=== PATIENT | female | born 1950 | race Caucasian/White ===

== ENCOUNTER 2024-02-28 23:15 | Inpatient (IN) | payer MEDICARE, OTHER, SELFPAY ==
[2024-02-28 20:22] VITALS: BP 107/61
--- NOTE | 2024-02-28 20:29 | ED.GENMED ---
History of Present Illness
General
Chief Complaint: Abnormal Lab Value
Time Seen by Provider: 02/28/24 20:25
History of Present Illness
History of Present Illness:
HPI: The patient presents from [facility] with an abnormal lab test of a sodium of 156. She has baseline dementia and we are told that there has been no change in her mental status. Details are currently limited.
EXAM:
GENERAL: Appears in some distress during IV insertion placement of the right upper extremity
HEENT: Very dry oral mucosa
CARDIOVASCULAR: Regular rate and rhythm
PULMONARY: No respiratory distress, breathing is nonlabored, equal and clear breath sounds
ABDOMEN: Soft and nontender with no peritoneal signs
NEUROLOGIC: The patient has evidence of dementia, not oriented to month or place, strength is equal in all extremities, yells out at times
EXTREMITIES: Moves all extremities equally, no tenderness, no edema
PYSCHIATRIC: Very limited historian, poor insight and judgment
TIME OF INITIAL ENCOUNTER: 8:30 PM
NUMBER AND COMPLEXITY OF PROBLEMS ADDRESSED AT THE ENCOUNTER
� Chronic conditions affecting care: Dementia
� Acute Exacerbation and/or Progression of Chronic Illness: This is an acute problem
� Differential Diagnosis includes: Dehydration, EMA, hypernatremia
AMOUNT AND/OR COMPLEXITY OF DATA TO BE REVIEWED AND ANALYZED
� I performed an independent evaluation of and my interpretation is:
EKG:
CT:
X-rays:
Laboratory Studies: Sodium is 154, creatinine is 1.0
Other:
� Review of other/old records: I reviewed the notes and records coming in from [facility] which indicates a sodium of 156
� Clinical information was obtained by an independent historian: EMS/halfway notes
� Prescriptions/Medications Considered but not given:
� Further testing considered but not performed:
RISK OF COMPLICATIONS AND/OR MORBIDITY OR MORTALITY OF PATIENT MANAGEMENT
� Social determinants of health affecting care: Lives at [facility]
� Discussion with other providers: Dr. Hutchins for admission at 9:50 PM
� Escalation of care including admission/observation vs risk of discharge considered: The patient appears very dehydrated in the setting of a sodium of 156. I gave her 500 mL normal saline bolus then will switch to half-normal
at 100 mL/h. Sodium remains high here. Will plan admission to the hospital for IV fluids and further management of the hyponatremia.
Phy Exam
Physical Exam
Physical Exam:
See HPI
Course
Orders/Labs/Results
Orders:
Orders
02/28/24 20:28
0.9% Sodium Chloride 500 ml [Nss] 500 ml IV BOLUS
02/28/24 20:40
Basic Metabolic Panel Urgent
Complete Blood Count/With Diff Urgent
02/28/24 21:00
0.45% Sodium Chloride 1000 ml [0.45%NaCl] 1,000 ml IV 100 mls/hr
Abnormal Lab Results
02/28/24
20:40
WBC 15.6 H 10^3/uL
(4.8-10.8)
Hgb 11.7 L g/dL
(12.0-16.0)
Hct 36.8 L %
(37.0-47.0)
MCV 79.8 L fL
(81.0-99.0)
MCH 25.4 L pg
(27.0-31.0)
MCHC 31.8 L g/dL
(33.0-37.0)
RDW 22.1 H %
(11.5-14.5)
Abs Immat Gran (auto) 0.2 H 10^3/uL
(0-0.05)
Absolute Neuts (auto) 12.1 H 10^3/uL
(1.4-6.5)
Absolute Monos (auto) 1.3 H 10^3/uL
(0.1-0.6)
Immature Gran % 1.0 H %
(0-0.5)
Neutrophils % 77.6 H %
(42.2-75.2)
Lymphocytes % 12.8 L %
(20.5-51.1)
Sodium 154 H mmol/L
(135-145)
Chloride 119 H mmol/L
(98-107)
BUN 25 H mg/dl
(7-17)
Glucose 109 H mg/dl
(70-99)
02/28/24 20:40
02/28/24 20:40
Vital Signs
Initial and Last Documented VS:
Initial Vital Signs
Temp Pulse Resp BP Pulse Ox
97.7 F 111 28 107/61 93
02/28/24 20:22 02/28/24 20:22 02/28/24 20:22 02/28/24 20:22 02/28/24 20:22
Last Documented Vital Signs
Temp Pulse Resp BP Pulse Ox
97.7 F 109 17 98/75 90
02/28/24 20:22 02/28/24 21:30 02/28/24 21:30 02/28/24 21:00 02/28/24 20:46
*Critical Care Note
Total Time (30-74mins, 75-104mins- exclusive of procedures): Not Applicable
ED Attending Note
-
Portions of this chart may have been created with voice recognition software.� Occasional wrong word or��sound alike� substitutions may have occurred due to the inherent limitations of voice recognition software.
Discharge Plan
Departure
Patient Disposition: Admit
Date of Disposition: 02/28/24
Time of Disposition: 21:53
Presentation/result/management discussed w/ accepting MD/DO: Hospitalist
Discharge Problem:
Acute hypernatremia
Prescriptions:
No Action
multivitamin Tablet
1 tab PO DAILY
oxcarbazepine 150 mg Tablet
150 mg PO BID
acetaminophen 325 mg Tablet
650 mg PO Q6H PRN (Reason: mild pain)
magnesium hydroxide [Milk of Magnesia] 400 mg/5 mL Suspension
30 ml PO HS PRN (Reason: if no bm x 3 days)
nystatin 100,000 unit/gram Cream
1 applic TOPICAL BID
folic acid 1 mg Tablet
1 mg PO DAILY
levofloxacin [Levaquin] 500 mg Tablet
500 mg PO DAILY
Patient Comments:
02/28/2024: for 7 days, stop date 02/29/24
enoxaparin 40 mg/0.4 mL Syringe
40 mg SC DAILY
metoprolol tartrate 25 mg Tablet
12.5 mg PO BID
Referrals:
Rodney Olsen MD [Family Provider] -
Interventions
Interventions:
*Risk Screen - Suicide Last Done: 02/28/24 20:35
*General Assessment Last Done: 02/28/24 20:35
*Neglect/Abuse Screening Last Done: 02/28/24 20:35
ED- Fall Risk Assessment Last Done: 02/28/24 20:35
Discharge Date and Time
Print Language: TRINIDADIAN
[2024-02-28 20:48] LABS: % Basophils 0.3 % (0-2); % Eosinophils 0.2 % (0-6); % Lymphocytes 12.8 % (20.5-51.1); % Monocytes 8.1 % (1.7-9.3); % Neutrophils 77.6 % (42.2-75.2); Absolute Basophils 0.1 10^3/uL (0-0.2); Absolute Immature Granulocytes 0.2 10^3/uL (0-0.05); Absolute Monocytes 1.3 10^3/uL (0.1-0.6); Absolute Neutrophils 12.1 10^3/uL (1.4-6.5); Hematocrit 36.8 % (37.0-47.0); Hemoglobin 11.7 g/dL (12.0-16.0); Mean Corp Hgb Conc. 31.8 g/dL (33.0-37.0); Mean Corpuscular Hgb 25.4 pg (27.0-31.0); Mean Corpuscular Volume 79.8 fL (81.0-99.0); Mean Platelet Volume 10.4 fL (7.4-10.4); Nucleated Red Blood Cells % 0 %; Platelet Count 328 10^3/uL (130-400); Red Blood Cell Count 4.61 10^6/uL (4.20-5.40); Red Cell Dist. Width 22.1 % (11.5-14.5); White Blood Cell Count 15.6 10^3/uL (4.8-10.8)
[2024-02-28] MEDS: NSS 500 IV (20:48)
[2024-02-28 21:00] VITALS: BP 98/75
[2024-02-28 21:00] LABS: Blood Urea Nitrogen 25 mg/dl (7-17); Calcium 9.6 mg/dl (8.4-10.2); Carbon Dioxide 27 mmol/L (22-30); Chloride 119 mmol/L (98-107); Glucose 109 mg/dl (70-99); Potassium 3.7 mmol/L (3.5-5.1); Sodium 154 mmol/L (135-145); eGFR 58.75
[2024-02-28 21:27] LABS: Anisocytosis 1+; Hypochromasia 1+; Macrocytosis 1+; Normal RBC Morphology No; Ovalocytes 2+
[2024-02-28 21:28] LABS: Stomatocytes 1+
[2024-02-28] MEDS: 0.45%NACL 1000 IV (21:31)
[2024-02-28 22:00] VITALS: BP 101/85
--- NOTE | 2024-02-28 22:04 | HPS.HSE ---
Family Physician
-
Family Physician: Rodney Olsen
Chief Complaint
-
abnormal lab value
History of Present Illness
73 y/o F, hx of VTE, COPD, GERD, chronic CHF (unknown type), HTN, pulm fibrosis, Alzheimer dementia, CKD 3b, presents to ER from [facility] due to abnormal lab value of Na 156. Per records, it appears patient was placed on Levaquin for R base
PNA. Details are otherwise limited but reportedly no change in mental status. Patient cannot provide any history due to dementia.
In ER, Na level 154, WBC level 15.6 - patient dehydrated, started on IVF and admitted.
Medical History
Past Medical History
Past Medical History: Reports Other (hx of VTE, COPD, GERD, chronic CHF (unknown type), HTN, pulm fibrosis, Alzheimer dementia, CKD 3b)
Past Surgical History: Reports None
Social History
Tobacco: Non-smoker
Alcohol: None
Drug: None
Living: Longterm
Family History
Family History: Not pertinent
Allergies / Home Medications
Allergies reflects when Allergies were last updated in [facility].
Home Medications with original date entered in [facility]
Allergy/Medication List:
Allergies
Allergy/AdvReac Type Severity Reaction Status Date / Time
ibuprofen Allergy Unknown Unknown Verified 02/28/24 20:54
penicillin G Allergy Unknown Unknown Verified 02/28/24 20:54
amoxicillin Allergy Unknown Verified 02/28/24 20:54
Home Medications
acetaminophen 325 mg tablet 650 mg PO Q6H PRN mild pain 02/28/24
enoxaparin 40 mg/0.4 mL subcutaneous syringe 40 mg SC DAILY 02/28/24
folic acid 1 mg tablet 1 mg PO DAILY 02/28/24
levofloxacin 500 mg tablet 500 mg PO DAILY 02/28/24
magnesium hydroxide 400 mg/5 mL oral suspension (Milk of Magnesia) 30 ml PO HS PRN if no bm x 3 days 02/28/24
metoprolol tartrate 25 mg tablet 12.5 mg PO BID 02/28/24
multivitamin 1 tab PO DAILY 02/28/24
nystatin 100,000 unit/gram topical cream 1 applic topical BID sacral rash 02/28/24
oxcarbazepine 150 mg tablet 150 mg PO BID 02/28/24
Review of Systems
-
Unable to obtain full review of systems at this time due to: Dementia
Physical Exam
Vital Signs
Vital Signs
Temp Pulse Resp BP Pulse Ox
97.7 F 109 17 98/75 90
02/28/24 20:22 02/28/24 21:30 02/28/24 21:30 02/28/24 21:00 02/28/24 20:46
Physical Exam
General: Appears Chronically Ill and Other (dehydrated)
HEENT: NormoCephalic and Anicteric; No Moist mucous membranes (dry)
Respiratory: Clear; No Wheezes or Rales
Cardiac: S1/S2 and Regular Rhythm
GI: Soft
Neuro: Awake
Hematologic/Lymphatic: No Lymphadenopathy
Psych: Calm and Apparent Dementia
Laboratory Results
-
02/28/24 20:40
02/28/24 20:40
Data Reviewed
-
Lab Data: Labs Reviewed by me
Impression/Plan
-
Assessment:
Acute hypernatremia
Dehydration
- FWD is 5.3 L
- continue 1/2 NSS and repeat AM BMP
- suspect this can turn into a chronic issue with progressive dementia
Sinus tachy
- likely related to infection vs dehydration
- monitor on tele
- check TSH
Leukocytosis
- check UA, Blood Cx, CXR
- noted CXR with R PNA (small infiltrate on Outside CXR report)
- on Levaquin; hold for now pending above workup
COPD
GERD
chronic CHF (unknown type)
Essential HTN
- continue BB
pulm fibrosis
Alzheimer dementia
hx of seizure disorder
- on Oxcarbazepine
CKD 3b
hx of VTE
DVT ppx
- Lovenox
Code: DNR/DNI per records from [place]
[2024-02-28] MEDS: ATIVAN 0.5 MG IV (22:29)
[2024-02-28 23:02] VITALS: BP 98/58
[2024-02-29] VITALS (7 sets, daily range): BP systolic 125–167; BP diastolic 77–90; BMI 35.1
--- NOTE | 2024-02-29 00:40 | PTCARENOTE ---
Received patient from ED via stretcher. Patient pulled over from stretcher to bed with assistance. Patient verbalizes minimally, occasionally yells out. Unable to complete admission history due to patient being nonverbal and hx of dementia. Bed
alarm in place and call archer within reach.
--- NOTE | 2024-02-29 03:10 | DOWNTIME ---
There was a [employer] Client Blow Pit Operator Downtime on 02/28/2024 from 0100 to 02/29/2024 at 0300. Downtime documentation of patient's care, including medication administrations, has been reconciled in the electronic record per guidelines. Refer to the
patient's paper chart under the miscellaneous tab to see printed paper medication records and downtime forms.
[2024-02-29 05:30] LABS: Urine Albumin Trace (Neg - Trace); Urine Bilirubin 1+ (Negative); Urine Character Clear (Clear); Urine Color Amber; Urine Glucose Negative (Negative); Urine Ketone Trace (Negative); Urine Leukocyte 1+ (Negative); Urine Nitrite Positive (Negative); Urine Occult Blood Negative (Negative); Urine Urobilinogen 1+ (Neg - 1+)
[2024-02-29 05:41] LABS: % Basophils 0.6 % (0-2); % Eosinophils 0.6 % (0-6); % Immature Granulocytes 1.5 % (0-0.5); % Lymphocytes 17.7 % (20.5-51.1); % Monocytes 8.7 % (1.7-9.3); % Neutrophils 70.9 % (42.2-75.2); Absolute Basophils 0.1 10^3/uL (0-0.2); Absolute Eosinophils 0.1 10^3/uL (0-0.7); Absolute Immature Granulocytes 0.2 10^3/uL (0-0.05); Absolute Lymphocytes 1.9 10^3/uL (1.2-3.4); Absolute Monocytes 0.9 10^3/uL (0.1-0.6); Absolute Neutrophils 7.7 10^3/uL (1.4-6.5); Hematocrit 34.6 % (37.0-47.0); Hemoglobin 10.6 g/dL (12.0-16.0); Mean Corp Hgb Conc. 30.6 g/dL (33.0-37.0); Mean Corpuscular Hgb 24.7 pg (27.0-31.0); Mean Corpuscular Volume 80.7 fL (81.0-99.0); Mean Platelet Volume 10.9 fL (7.4-10.4); Nucleated Red Blood Cells % 0 %; Platelet Count 286 10^3/uL (130-400); Red Blood Cell Count 4.29 10^6/uL (4.20-5.40); Red Cell Dist. Width 22.2 % (11.5-14.5); White Blood Cell Count 10.8 10^3/uL (4.8-10.8)
[2024-02-29 05:42] LABS: Urine Hyaline Cast 0-2 /LPF (0-2); Urine Squamous Cell 16-20 /LPF (Few); Urine Urothelial Cell >30 /LPF (FEW)
[2024-02-29 05:43] LABS: Urine Red Blood Cell 0-2 /HPF (0-2); Urine White Cell 60-70 /HPF (0-5)
[2024-02-29 05:44] LABS: Urine Bacteria Many (Negative)
[2024-02-29 06:16] LABS: Blood Urea Nitrogen 23 mg/dl (7-17); Calcium 9.1 mg/dl (8.4-10.2); Carbon Dioxide 23 mmol/L (22-30); Chloride 122 mmol/L (98-107); Glucose 101 mg/dl (70-99); Potassium 3.5 mmol/L (3.5-5.1); Sodium 153 mmol/L (135-145); eGFR > 60.00
[2024-02-29] MEDS: 0.45%NACL 1000 IV (07:15)
--- NOTE | 2024-02-29 08:15 | W.PN.HOSP.TC ---
Addendum entered and electronically signed by Gavin Christianson DO 02/29/24 10:43:
I had a long discussion with patient's daughter Corrie in person today. We discussed goals of care. We discussed her advanced dementia and presentation with hypernatremia, severe dehydration, dysphagia. I recommend hospice consideration. Corrie is
interested in pursuing an I will place a consult to hospice today. She is also interested in DO NOT RESUSCITATE.
Continue n.p.o. given severe dysphagia. Discussed with speech therapy. Family not interested in artificial nutrition and I agree with that plan.
Original Note:
Today's Communication/Plan
-
Change IV fluids to D5W
Hold sedatives
Await family meeting
Assessment / Plan
Assessment / Plan
Gen-sedated, unarousable
HEENT-NC, AT, anicteric, clear oral mm
Neck-supple
CV-reg, no M, +S1/S2
Lungs-clear B/L
Abd-soft, NT, ND
Ext-no edema
Musculoskeletal-no cyanosis, clubbing
Skin-warm and dry
Acute TME -unknown baseline mental status but I am told that she is nonverbal. Currently on arousable, unclear if it is due to ongoing hypernatremia versus adverse effect to lorazepam administered last night versus other. Will need further workup
if she does not wake up soon. Discussed with nursing. Daughter on her way in. Daughter states that ever since she was started on rivastigmine her mental status has deteriorated. However, I do not see this medication [facility].
Severe hypernatremia -due to dehydration due to poor oral intake due to dementia. Sodium 153 today. Will change IV fluids to D5W with 20 of KCl. Prognosis remains poor.
Leukocytosis -likely due to dehydration, resolved. Afebrile. Doubt infection. Blood and urine cultures sent in the emergency room.
Microcytic anemia - unknown acuity.
History of VTE
COPD without exacerbation
Chronic heart failure unknown type -stable.
Pulmonary fibrosis
Alzheimer's dementia
DNR
Will address goals of care with family. Seems hospice appropriate.
Anticipated Discharge: Within 24 hours
Subjective/Interval History
-
Date of Service: February 29, 2024
Patient seen and examined. Sedated, unarousable.
Objective Data
-
Labs:
Laboratory Results
02/28/24 02/29/24
20:40 04:45
WBC 15.6 H 10.8
Hgb 11.7 L 10.6 L
Hct 36.8 L 34.6 L
Plt Count 328 286
Sodium 154 H 153 H
Potassium 3.7 3.5
Chloride 119 H 122 H
Carbon Dioxide 27 23
BUN 25 H 23 H
Creatinine 1.0 0.9
Glucose 109 H 101 H
Calcium 9.6 9.1
Vital Signs:
Vital Signs
Temp Pulse Resp BP Pulse Ox
97.7 F 95 20 145/90 94
02/29/24 08:13 02/29/24 08:13 02/29/24 08:13 02/29/24 08:13 02/29/24 08:13
I&O
02/28/24 02/29/24 03/01/24
06:59 06:59 06:59
Output Total 100 / 100
Balance -100 / -100
Review of Systems
-
Unable to obtain full review of systems at this time due to: Dementia and Acuity
[2024-02-29] MEDS: MYCOSTATIN CREAM 1 APPLIC TOPICAL ×2 (08:27→21:09)
[2024-02-29] MEDS: D5W with KCL 20 MEQ 1000 IV ×2 (08:35→21:44)
[2024-02-29] MEDS: LOVENOX 40 MG SC (08:36)
[2024-02-29] MEDS: LOPRESSOR 12.5 MG PO (08:44)
[2024-02-29] MEDS: FOLVITE 1 MG PO (08:45)
--- NOTE | 2024-02-29 09:22 | WOUNDNOTE ---
[facility] RN note: Patient admitted with hypernatremia, leukocytosis. Patient resides at [facility].
See H&P for complete history.
PMH: VTE, COPD, CHF, HTN, pulmonary fibrosis, Alzheimer's dementia, CKD3b, pneumonia.
Wound Location and type/assessment: Patient admitted with: mild yeast appearing rash buttocks, sacral crease, groin folds, breast folds. Nystatin cream on order. Linear scratch park knee, RLE. L lateral heel dry brown callus.
Appetite: NPO. ST consulted.
Pressure redistribution devices in place: [employer] Accumax. Patient can turn self in bed.
Plan: Patient turned to R semi side lying position with help from NIDHI Louis. Heels off bed with pillow. Protective foam applied to L lateral heel.
Care plan to be updated. Will sign off, call if needed.
--- NOTE | 2024-02-29 09:59 | PTOTSP ---
Pt does not follow commands and resists therapist's attempt to mobilize. PT will sign off.
--- NOTE | 2024-02-29 10:07 | PTOTSP ---
pt with dementia, not following direction or tolerating activity. no acute OT needs identified, as pt is middle or intermediate school principal care at [employer] and assume total care with all ADLs, transfers, ambulation. will sign off.
--- NOTE | 2024-02-29 13:18 | HOSPNOTE ---
Spoke with daughter about hospice and the philosophy. The plan is for patient to go to her home in [place]. Since it is out of our territory case management will make referrals to another accepting agency.
--- NOTE | 2024-02-29 15:13 | CM ---
Addendum entered by Tiffany Vera RN 02/29/24 15:29:
15 steps to apt .Admission called to change address .
Original Note:
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 She is assisted in all activities of daily living.Spoke with daughter Molly who requested to speak with Hospice.Molly said she wants [facility] at her home [address],
[place] [address].Spoke with Sylvia at [facility] [place].Referral placed in care port.Sylvia said she was ordering DME. Daughter said she was setting up [facility].Requested an ambulance at [place] notified pt not returning to [place].
Pharmacy Pharm script
PCP Dr Olsen
PLAN Home on [facility]
[2024-02-29] MEDS: DESENEX/MITRAZOL/ZEASORB 1 APPLIC TOPICAL (21:10)
[2024-02-29] MEDS: LOPRESSOR PO (21:22)
--- NOTE | 2024-02-29 21:40 | PTCARENOTE ---
Patient refused PO medications after multiple attempts. Patient yelling and combative with RN while trying to give medications. Agitated with care at times. Attempted to communicate via language line translator and interpreter, patient still continuing to refuse.
SHIP WASHER made aware, no further orders. Patient resting comfortably.
[2024-03-01 03:00] VITALS: BP 137/74
[2024-03-01 06:00] VITALS: BMI 36.0
[2024-03-01 07:52] VITALS: BP 120/64
--- NOTE | 2024-03-01 08:30 | W.PN.HOSP.TC ---
Addendum entered and electronically signed by Gavin Christianson DO 03/01/24 13:25:
Alzheimer's dementia with agitation
Original Note:
Today's Communication/Plan
-
Await labs
Discharge
Assessment / Plan
Assessment / Plan
Gen-awake, alert, confused
HEENT-NC, AT, anicteric, clear oral mm
Neck-supple
CV-reg, no M, +S1/S2
Lungs-clear B/L
Abd-soft, NT, ND
Ext-no edema
Musculoskeletal-no cyanosis, clubbing
Skin-warm and dry
Acute TME -unknown baseline mental status, but appears to be improved today. Trying to speak in Singaporean. Much more awake and alert today.
Severe hypernatremia -due to dehydration due to poor oral intake due to dementia. Sodium pending for today.
Leukocytosis -likely due to dehydration, resolved. Afebrile. Doubt infection. Blood and urine cultures sent in the emergency room, negative so far.
Microcytic anemia - unknown acuity.
History of VTE
COPD without exacerbation
Chronic heart failure unknown type -stable.
Pulmonary fibrosis
Alzheimer's dementia
DNR
Dispo -family opted for home hospice. Will try to discharge today.
Anticipated Discharge: Today
Subjective/Interval History
-
Date of Service: March 01, 2024
Patient seen and examined. Much more awake and alert today.
Objective Data
-
Labs:
Laboratory Results
03/01/24 03/01/24
04:34 04:44
WBC Cancelled Pending
Hgb Cancelled Pending
Hct Cancelled Pending
Plt Count Cancelled Pending
Sodium Cancelled Pending
Potassium Cancelled Pending
Chloride Cancelled Pending
Carbon Dioxide Cancelled Pending
BUN Cancelled Pending
Creatinine Cancelled Pending
Glucose Cancelled Pending
Calcium Cancelled Pending
Vital Signs:
Vital Signs
Temp Pulse Resp BP Pulse Ox
97.4 F 89 18 120/64 99
03/01/24 07:52 03/01/24 07:52 03/01/24 07:52 03/01/24 07:52 03/01/24 07:52
I&O
02/29/24 03/01/24 03/02/24
06:59 06:59 06:59
Intake Total 0 / 0
Output Total 100 / 100
Balance -100 / -100 0 / 0
Review of Systems
-
Unable to obtain full review of systems at this time due to: Dementia and Language Barrier
--- NOTE | 2024-03-01 09:17 | PN.CDI ---
CDI
- -
CDI:
Physician Documentation Request
Admit Date: 02/28/24 23:15
Dear Doctor Sammy,
Clinical Indicators:
Patient admitted with hypernatremia; PMH includes Alzheimer's dementia.
02/27 Lorazepam 0.5 mg IV given x 1 dose.
02/28 RN note, '...Patient yelling and combative with RN while trying to give medications. Agitated with care at times.'
Please specify any associated manifestations of the Alzheimer disease:
Alzheimer's dementia with agitation
Alzheimer's dementia only
Other, please specify
Use of terms such as suspected, likely, concern for, or probable (associated with a specific diagnosis that is being evaluated, monitored, or treated as if it exists) are acceptable and can be coded in the inpatient setting, when documented at the
time of discharge.
Thank you,
SÁNCHEZ Armstrong RN
CDI Specialist
available via tiger text
Please use your independent medical judgment in providing your response.
[2024-03-01] MEDS: LOVENOX 40 MG SC (09:42)
--- NOTE | 2024-03-01 09:42 | PTOTSP ---
Speech Therapy
Patient more alert today and tolerating solids/liquids without gross signs of aspiration. Given family decision to pursue hospice, recommend initiation of diet without need for instrumental testing.
Recommend
1. IDDSI 6 and Thin Liquids
2. Supervision and assistance with feeding.
3. Meds whole in applesauce as tolerated.
4. Aspiration precautions.
No further skilled ST indicated given decisions re: next level of care.
[2024-03-01] MEDS: DESENEX/MITRAZOL/ZEASORB 1 APPLIC TOPICAL ×2 (09:45→20:57)
[2024-03-01] MEDS: LOPRESSOR PO ×2 (09:46→21:07)
[2024-03-01] MEDS: MYCOSTATIN CREAM 1 APPLIC TOPICAL ×2 (09:46→20:58)
[2024-03-01] MEDS: FOLVITE PO (09:46)
[2024-03-01 11:32] VITALS: BP 119/67
--- NOTE | 2024-03-01 14:32 | CM ---
PT confused speaks Swiss who lived terminal operator at [facility].
Daughter Molly requested [facility] in her home at [address] [address].
Spoke with Suki [phone] at [facility].DME to be delivered today to home.
Daughter said she was setting up [facility] they can not start till 03/02/24.
[place]Medical nec [place]. Ambulance set up form 1 pm tomorrow
MD aware .
MD signed DNR OOH form
PLAN Home with [facility]
[2024-03-01 15:55] VITALS: BP 132/69
[2024-03-01 16:39] LABS: % Basophils 0.7 % (0-2); % Immature Granulocytes 1.2 % (0-0.5); % Lymphocytes 26.6 % (20.5-51.1); % Monocytes 5.8 % (1.7-9.3); % Neutrophils 63.7 % (42.2-75.2); Absolute Basophils 0.1 10^3/uL (0-0.2); Absolute Eosinophils 0.2 10^3/uL (0-0.7); Absolute Immature Granulocytes 0.1 10^3/uL (0-0.05); Absolute Lymphocytes 2.4 10^3/uL (1.2-3.4); Absolute Monocytes 0.5 10^3/uL (0.1-0.6); Absolute Neutrophils 5.8 10^3/uL (1.4-6.5); Hematocrit 32.9 % (37.0-47.0); Hemoglobin 10.4 g/dL (12.0-16.0); Mean Corp Hgb Conc. 31.6 g/dL (33.0-37.0); Mean Corpuscular Hgb 25.4 pg (27.0-31.0); Mean Corpuscular Volume 80.2 fL (81.0-99.0); Mean Platelet Volume 10.3 fL (7.4-10.4); Nucleated Red Blood Cells % 0 %; Platelet Count 297 10^3/uL (130-400); Red Cell Dist. Width 21.4 % (11.5-14.5)
[2024-03-01 17:07] LABS: Blood Urea Nitrogen 14 mg/dl (7-17); Calcium 9.1 mg/dl (8.4-10.2); Carbon Dioxide 23 mmol/L (22-30); Chloride 114 mmol/L (98-107); Estimated Creatinine Clearance 58 ml/min; Glucose 119 mg/dl (70-99); Potassium 3.3 mmol/L (3.5-5.1); Sodium 143 mmol/L (135-145); eGFR > 60.00
[2024-03-01 19:22] VITALS: BP 169/76
[2024-03-01 23:56] VITALS: BP 127/74
[2024-03-02 03:30] VITALS: BP 136/71
[2024-03-02 06:00] VITALS: BMI 35.6
[2024-03-02 06:10] LABS: % Basophils 0.5 % (0-2); % Eosinophils 0.9 % (0-6); % Immature Granulocytes 0.9 % (0-0.5); % Lymphocytes 13.6 % (20.5-51.1); % Monocytes 6.2 % (1.7-9.3); % Neutrophils 77.9 % (42.2-75.2); Absolute Basophils 0.1 10^3/uL (0-0.2); Absolute Eosinophils 0.1 10^3/uL (0-0.7); Absolute Immature Granulocytes 0.1 10^3/uL (0-0.05); Absolute Lymphocytes 1.9 10^3/uL (1.2-3.4); Absolute Monocytes 0.9 10^3/uL (0.1-0.6); Absolute Neutrophils 10.7 10^3/uL (1.4-6.5); Hemoglobin 10.8 g/dL (12.0-16.0); Mean Corp Hgb Conc. 30.9 g/dL (33.0-37.0); Nucleated Red Blood Cells % 0 %; Platelet Count 270 10^3/uL (130-400); Red Blood Cell Count 4.32 10^6/uL (4.20-5.40); Red Cell Dist. Width 21.3 % (11.5-14.5); White Blood Cell Count 13.8 10^3/uL (4.8-10.8)
[2024-03-02 07:32] VITALS: BP 130/73
[2024-03-02 08:20] LABS: Blood Urea Nitrogen 13 mg/dl (7-17); Calcium 8.8 mg/dl (8.4-10.2); Carbon Dioxide 24 mmol/L (22-30); Chloride 114 mmol/L (98-107); Estimated Creatinine Clearance 51 ml/min; Glucose 107 mg/dl (70-99); Potassium 3.6 mmol/L (3.5-5.1); Sodium 144 mmol/L (135-145); eGFR > 60.00
--- NOTE | 2024-03-02 08:40 | W.PN.HOSP.TC ---
Addendum entered and electronically signed by Gavin Christianson DO 03/02/24 14:04:
Doubt sepsis. UTI only.
Original Note:
Today's Communication/Plan
-
Discharge
Assessment / Plan
Assessment / Plan
Gen-awake, alert, confused
HEENT-NC, AT, anicteric, clear oral mm
Neck-supple
CV-reg, no M, +S1/S2
Lungs-clear B/L
Abd-soft, NT, ND
Ext-no edema
Musculoskeletal-no cyanosis, clubbing
Skin-warm and dry
Acute TME -etiology most likely due to severe hypernatremia, dehydration. Unclear contribution of urinary tract infection. Appears to be back to baseline mental status. Has underlying dementia.
Severe hypernatremia -due to dehydration due to poor oral intake due to dementia. Sodium normalized.
E. coli UTI -will give a short course of Bactrim double strength for 3 days on discharge. Discussed with daughter on the phone. Unclear if she was having symptoms as she was confused on arrival and has underlying dementia.
Microcytic anemia - unknown acuity.
History of VTE
COPD without exacerbation
Chronic heart failure unknown type -stable.
Pulmonary fibrosis
Alzheimer's dementia
DNR
Dispo -family opted for home hospice. Discharge today. Updated daughter on the phone again today.
32-minute spent in discharge process.
Anticipated Discharge: Today
Subjective/Interval History
-
Date of Service: March 02, 2024
Patient seen and examined. Much more awake, alert today.
Objective Data
-
Labs:
Laboratory Results
03/02/24 03/02/24
05:25 07:38
WBC 13.8 H
Hgb 10.8 L
Hct 35.0 L
Plt Count 270
Sodium Cancelled 144
Potassium Cancelled 3.6
Chloride Cancelled 114 H
Carbon Dioxide Cancelled 24
BUN Cancelled 13
Creatinine Cancelled 0.9
Glucose Cancelled 107 H
Calcium Cancelled 8.8
Vital Signs:
Vital Signs
Temp Pulse Resp BP Pulse Ox
97.8 F 91 20 130/73 95
03/02/24 07:32 03/02/24 07:32 03/02/24 07:32 03/02/24 07:32 03/02/24 07:32
I&O
03/01/24 03/02/24 03/03/24
06:59 06:59 06:59
Intake Total 0 / 0 90 / 90
Balance 0 / 0 90 / 90
Review of Systems
-
Unable to obtain full review of systems at this time due to: Dementia and Language Barrier
--- NOTE | 2024-03-02 08:51 | W.DS.TRANS ---
DC Summary - Engagement Quality Consultant
-
Discharge Instructions:
Discharge Diagnosis/Procedures Hypernatremia, dehydration, UTI, dementia
Diet Other diet
Additional Diets Soft and bite sized foods, aspiration
precautions
Activity With assistance
Driving Restrictions No driving
Bathing Restrictions None
Other Services Hospice
Instructions:
Stand-Alone Forms:
Changes to Home Medications: No
Discharge Medications:
DC Medications w/original date entered in [facility]
acetaminophen 325 mg tablet 650 mg PO Q6H PRN mild pain 02/28/24
oxcarbazepine 150 mg tablet 150 mg PO BID Seizures 02/28/24
polyethylene glycol 3350 17 gram oral powder packet (HealthyLax) 17 g PO DAILYPRN PRN constipation #0 ea 03/02/24
sennosides 8.6 mg-docusate sodium 50 mg tablet (Stool Softener-Stimulant Laxative) 1 tab PO BIDPRN PRN constipation #0 tabs 03/02/24
sulfamethoxazole 800 mg-trimethoprim 160 mg tablet 1 tab PO BID #5 tabs 03/02/24
Home Medication Changes
Pending Results: No
[2024-03-02] MEDS: BACTRIM DS 800 MG/160 MG 1 TABLET PO (09:16)
[2024-03-02] MEDS: LOVENOX 40 MG SC (09:21)
[2024-03-02] MEDS: DESENEX/MITRAZOL/ZEASORB 1 APPLIC TOPICAL (09:29)
[2024-03-02] MEDS: FOLVITE PO (09:29)
[2024-03-02] MEDS: LOPRESSOR PO (09:29)
[2024-03-02] MEDS: MYCOSTATIN CREAM 1 APPLIC TOPICAL (09:29)
--- NOTE | 2024-03-02 11:53 | CM ---
entered order for discharge.
Spoke with daughter Molly who confirmed [facility] set up to care for pt at home.
Molly agrees with dc to home today with Hospice.
Spoke with Sylvia from [facility] nurse will meet at [address] [facility] [address] today for SOC.
Sylvia [phone] at [facility] confirmed DME was delivered .
Medical nec form completed. Ambulance set up form 1 pm today.
signed DNR OOH form
PLAN Home with [facility] fax [phone]
--- NOTE | 2024-03-02 13:35 | PN.CDI ---
CDI
- -
CDI:
Physician Documentation Request
Admit Date: 02/28/24 23:15
Dear Doctor Sammy,
Clinical Indicators:
Patient admitted with hypernatremia & toxic metabolic encephalopathy.
H & P, 'Sinus tachy- likely related to infection vs dehydration'
03/02 PN, 'E. Coli UTI-will give a short course of Bactrim double strength for 3 days on discharge'
WBC on admission:
02/28/24
20:40
WBC 15.6 H
HR trend on admission:
02/28/24
20:22 02/28/24
21:00 02/28/24
21:30
Pulse 111 107 109
02/28/24
22:00 02/28/24
22:30 02/28/24
23:00
Pulse 98 111 94
Please clarify which of the following most accurately describes the status of the patient's infection:
Sepsis POA
- Systemic manifestations of infection, with 2 or more SIRS criteria which include:
- Fever >100.4 degrees F or hypothermia < 96.8 degrees F
- Leukocytosis - WBC > 12,000 or leukopenia - WBC < 4,000 or > 10% bands
- Tachycardia > 90 beats per minute
- Tachypnea - RR > 20 breaths per minute or PaCO2 , 32mmHg
Source: Merck Manual 2013
UTI only
Other, please specify
Use of terms such as suspected, likely, concern for, or probable (associated with a specific diagnosis that is being evaluated, monitored, or treated as if it exists) are acceptable and can be coded in the inpatient setting, when documented at the
time of discharge.
Thank you,
SÁNCHEZ Armstrong RN
CDI Specialist
available via tiger text
Please use your independent medical judgment in providing your response.
== END 2024-03-02 14:17 | disposition hospice, home (50) | DRG 640 ==
LOC: 4 EAST ACU 23:15
PROVIDERS: ADMITTING PHYSICIAN Internal Medicine; ATTENDING PHYSICIAN Hospitalist; EMERGENCY PHYSICIAN Emergency Medicine; FAMILY PHYSICIAN Internal Medicine; REFERRING PHYSICIAN Internal Medicine
DX: E87.0 Hyperosmolality and hypernatremia (principal); G92.8 Other toxic encephalopathy; N39.0 Urinary tract infection, site not specified; I13.0 Hypertensive heart and chronic kidney disease with heart failure and stage 1 through stage 4 chronic kidney disease, or unspecified chronic kidney disease; F02.C11 Dementia in other diseases classified elsewhere, severe, with agitation; E86.0 Dehydration; J44.9 Chronic obstructive pulmonary disease, unspecified; R13.10 Dysphagia, unspecified; D50.9 Iron deficiency anemia, unspecified; N18.32 Chronic kidney disease, stage 3b; K21.9 Gastro-esophageal reflux disease without esophagitis; G40.909 Epilepsy, unspecified, not intractable, without status epilepticus; B96.20 Unspecified Escherichia coli [E. coli] as the cause of diseases classified elsewhere; I50.9 Heart failure, unspecified; J84.10 Pulmonary fibrosis, unspecified; G30.9 Alzheimer's disease, unspecified; Z66 Do not resuscitate; Z88.0 Allergy status to penicillin; Z88.6 Allergy status to analgesic agent; Z86.718 Personal history of other venous thrombosis and embolism
CPT/HCPCS: 71045; 80048; 81003; 81015; 84443; 85025; 87040; 87070; 87077; 87086; 87186; 92526; 92610; 93005; 96361; 96374; 97163; 97165; 99285